=== PATIENT | male | born 1980 | race Caucasian/White ===

== ENCOUNTER 2017-03-10 15:15 | Emergency (ER) | payer OTHER, BC ==
[2017-03-10] MEDS: NAPROXEN 250 MG TAB PO (18:44)
== END 2017-03-10 19:45 | disposition home or self-care (01) ==
LOC: M ED 15:15
DX: S49.92XA Unspecified injury of left shoulder and upper arm, initial encounter (principal); X50.0XXA Overexertion from strenuous movement or load, initial encounter; Y92.89 Other specified places as the place of occurrence of the external cause; Y99.0 Civilian activity done for income or pay
CPT/HCPCS: 73030

== ENCOUNTER → 2018-02-01 | Outpatient (REF) | payer BC ==
[~2018-02-01] MED LIST: NAPR-49 PO; ULTR50TA8 PO
== END ==
LOC: M LAB REF 17:07
PROVIDERS: ATTEND Physician Assistant
DX: J02.9 Acute pharyngitis, unspecified (principal)

== ENCOUNTER → 2018-06-12 | Outpatient (CLI) | payer BC ==
[~2018-06-12] MED LIST changes: -NAPR-49 PO; +NAPR-837 PO
[2018-06-12 16:57] LABS: BASO % 0.9 % (0.0-1.0); EOS # 0.1 10^3/uL (0.0-0.50); LYMPH # 1.2 10^3/uL (1.5-4.5); LYMPH % 26.9 % (24.0-44.0); MEAN CORPUSCULAR HEMOGLOBIN 31.6 pg (27.0-33.0); MEAN CORPUSCULAR HGB CONC 33.3 g/dl (32.0-36.5); MEAN CORPUSCULAR VOLUME 94.8 fl (80.0-96.0); MONO # 0.5 10^3/uL (0.0-0.8); MONO % 11.4 % (0.0-5.0); NEUTROPHILS # 2.6 10^3/uL (1.8-7.7); NEUTROPHILS % 58.6 % (36.0-66.0); PLATELET COUNT, AUTOMATED 228 10^3/uL (150-450); RED BLOOD COUNT 4.43 10^6/uL (4.30-6.10); WHITE BLOOD COUNT 4.5 10^3/uL (4.0-10.0)
[2018-06-12 17:08] LABS: ALBUMIN 4.1 GM/DL (3.2-5.2); ALT/SGPT 24 U/L (12-78); BLOOD UREA NITROGEN 13 MG/DL (7-18); CARBON DIOXIDE LEVEL 28 MEQ/L (21-32); CHLORIDE LEVEL 107 MEQ/L (98-107); CHOLESTEROL LEVEL 188 MG/DL (<200); CHOLESTEROL RISK RATIO 2.441 (<5); CREATININE FOR GFR 1.15 MG/DL (0.70-1.30); FREE T4 0.97 NG/DL (0.76-1.46); GLOMERULAR FILTRATION RATE > 60.0 (>60); GLUCOSE, FASTING 95 MG/DL (70-100); HDL CHOLESTEROL 77 MG/DL (>40); LDL CHOLESTEROL 95 MG/DL (<100); NON-HDL-C 111 MG/DL; POTASSIUM SERUM 4.3 MEQ/L (3.5-5.1); SODIUM LEVEL 141 MEQ/L (136-145); TOTAL PROTEIN 7.2 GM/DL (6.4-8.2); TRIGLYCERIDES LEVEL 79 MG/DL (<150)
[2018-06-12 17:20] LABS: HEMOGLOBIN A1c 5.8 %
== END ==
LOC: M WUC 11:51
PROVIDERS: ATTEND Physician Assistant
DX: Z13.29 Encounter for screening for other suspected endocrine disorder (principal)

== ENCOUNTER 2018-12-04 05:57 | Day surgery (SDC) | payer BC, OTHER ==
[~2018-12-04] VITALS: Ht 182.9 cm; Wt 97.1 kg
[2018-12-04] MEDS ORDERED: ROPIvacaine 0.5% 30 ML INJECTION (J2795 PER 1MG) ONE (05:58)
[2018-12-04] MEDS ORDERED: LIDOCAINE 1% MDV 20ML VIAL ONE (05:58)
[2018-12-04] MEDS ORDERED: EPINEPHrine INJ 1 MG/ML 1ML AMP ONE (05:58)
[2018-12-04] MEDS ORDERED: fentaNYL 100 MCG/2 ML INJECTION (J3010) As Ordered ONE ×2 (06:46→07:05)
[2018-12-04] MEDS ORDERED: MIDAZOLAM INJ 2 MG/2 ML VIAL (J2250) As Ordered ONE ×2 (06:46→07:05)
[2018-12-04] MEDS ORDERED: LIDOCAINE 1% MDV 20ML VIAL As Ordered ONE (06:58)
[2018-12-04] MEDS ORDERED: EPINEPHrine INJ 1 MG/ML 1ML AMP As Ordered ONE (06:58)
[2018-12-04] MEDS ORDERED: ceFAZolin SOD 2 GM in IV 1 EA IV ONE (07:00)
[2018-12-04] MEDS ORDERED: LR 1,000 ML IV ONE (07:00)
[2018-12-04] MEDS ORDERED: PROPOFOL 200 MG/20 ML VIAL As Ordered ONE (07:04)
[2018-12-04] MEDS ORDERED: ROCURONIUM BROMIDE 50 MG/5 ML VIAL As Ordered ONE ×2 (07:04→09:07)
[2018-12-04] MEDS ORDERED: ONDANSETRON 4MG/2ML VIAL (J2405) As Ordered ONE (07:05)
[2018-12-04] MEDS ORDERED: SUGAMMADEX SODIUM 500 MG/5 ML VIAL (BRIDION) As Ordered ONE (07:05)
[2018-12-04] MEDS ORDERED: LIDOCAINE 2% INJ 100 MG/5 ML SDV (FOR ANES.) As Ordered ONE (07:05)
[2018-12-04] MEDS ORDERED: dexameTHASONE 4 MG/ML 1ML VIAL (J1100) As Ordered ONE ×2 (07:05→07:06)
[2018-12-04] MEDS ORDERED: KETOROLAC 60 MG/2 ML VIAL (J1885) As Ordered ONE (07:06)
[2018-12-04] MEDS ORDERED: ACETAMINOPHEN 1000MG 100ML IV BTL (OFIRMEV) (J0131 PER 10MG) As Ordered ONE (07:06)
[2018-12-04] MEDS: MIDAZOLAM INJ 2 MG/2 ML VIAL (J2250) IV PRN ×2 (08:02→08:05)
[2018-12-04] MEDS ORDERED: fentaNYL 100 MCG/2 ML INJECTION (J3010) IV PRN ×2 (09:00→11:00)
[2018-12-04] MEDS ORDERED: PERCOCET 5MG/325MG TAB PO PRN (11:00)
[2018-12-04] MEDS ORDERED: ONDANSETRON 4MG/2ML VIAL (J2405) IV PRN (11:00)
[2018-12-04] MEDS ORDERED: METOCLOPRAMIDE INJ 10MG/2ML VIAL (J2765) IV PRN (11:00)
[2018-12-04] MEDS ORDERED: LR 1,000 ML IV SCH ×2 (11:00→12:00)
[2018-12-04 11:35] VITALS: BP 142/83
--- NOTE | 2018-12-04 18:30 | RO ---
DATE OF PROCEDURE: 12/04/2018 PREOPERATIVE DIAGNOSES: 1. Left shoulder anterior instability. 2. Left shoulder impingement. 3. Left shoulder acromioclavicular joint contusion. POSTOPERATIVE DIAGNOSES: 1. Left shoulder anterior instability. 2. Left shoulder impingement. 3. Left shoulder acromioclavicular joint contusion. PROCEDURE: 1. Left shoulder arthroscopic anterior labral repair. 2. Superior left shoulder arthroscopic superior labral debridement three. 3. Left shoulder arthroscopic subacromial decompression including acromioplasty. 4. Left shoulder arthroscopic distal clavicle excision. SURGEON: Dr. Royce Campos LEGAL SERVICE SPECIALIST: MARILYNN Leach ANESTHESIA: General, preoperative nerve block. IV FLUIDS: Lactated Ringer's. ESTIMATED BLOOD LOSS: 5 mL. IMPLANTS: Arthrex 3 mm BioComposite SutureTak times one and Arthrex 2.9 mm BioComposite PushLock anchor times two with labral tape. CLOSURE: Nylon. DESCRIPTION OF PROCEDURE: The patient was identified in preoperative holding area, the left shoulder marked by myself. He had an interscalene nerve block by anesthesia and then was brought to the operating room, placed supine on a well-padded operating room (OR) table with a beanbag. General anesthesia was induced. He received appropriate IV antibiotics within 1 hour of incision. Examination under anesthesia revealed 180 degrees of forward flexion, 90 of external rotation, a grade 2+ anterior load and shift, grade 1 posterior load and shift. He was then placed into the right side down lateral decubitus position with an axillary roll and all bony prominences were well padded. Bilateral Venodyne boots for deep vein thrombosis (DVT) prophylaxis. The left arm was placed into the Arthrex STaR Sleeve lateral decubitus traction cabezas with 10 pounds of traction. The left shoulder was then prepped and draped in a normal sterile fashion with ChloraPrep. Prior to incision, time-out was performed per hospital protocol. Clementina Fischer was present for the entire procedure and participated in all essential portions of the procedure. This included patient positioning, draping, holding the arthroscope, providing axial traction and posterior distraction to assist during the labral repair, which was essential for this muscular individual. She also assisted with retrieving sutures arthroscopically, passing sutures through anchors, wound closure, applying the dressing and sling. A standard posterior viewing portal was made with 11-blade, 30-degree arthroscope introduced into the joint. A diagnostic arthroscopy was carried out revealing a small Hill-Sachs in the posterior humeral head adjacent to the infraspinatus attachment to the greater tuberosity. 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 There was no tearing of the posterior rotator cuff and no tearing of the supraspinatus. Subscapularis appeared intact with no lift off. The superior labrum appeared to have a leading edge tear, but there was no pathology of the long head of the biceps. There was a Baker complex with deficient anterior superior labrum and a thickened middle glenohumeral ligament draped over the subscapularis. There was free edge tearing of the anterior labrum at the equator and then there was a dramatically positive drive-through sign and then essentially no anterior inferior labrum; it had all torn and scarred in medially along the glenoid neck. An anterior working portal was established just above the subscapularis through the rotator interval to give the appropriate angle for drilling low on the glenoid. I probed the long head of the biceps and brought it into the joint, and there ws no tearing. Lifted the superior labrum off the glenoid, and there was intact articular cartilage extending over the top of the glenoid, making this more consistent with a sublabral foramen. The shaver was therefore used to perform a debridement of the superior labrum, but no indication for tenotomy, tenodesis, or SLAP repair. The supraspinatus was probed. No areas of tearing were encountered. Again, there was a dramatically positive drive-through sign. This was indicated for an anterior labral repair. An accessory anterior portal was created just anterior to the biceps, also through the rotator interval. Hooked radiofrequency cautery was used to develop the plane between articular cartilage and the anterior labrum. Labral elevators were then used to subperiosteally elevate labrum and capsule off the anterior glenoid neck. Once the capsule and labrum was fully mobilized, shaver was used on the bur setting to create a bleeding surface along the glenoid. Ring curette was also used to create some bleeding and to remove a millimeter of articular cartilage that was softened. I then drilled and placed the 3 mm Arthrex BioComposite SutureTak in the anterior inferior glenoid. The FiberWire sutures were then passed with a 25 degree tight left suture lasso in a horizontal mattress fashion making sure to grab the anterior band of the inferior glenohumeral ligament. Arthroscopic knots were then tied using alternating half hitches as my production administrative assistant applied posterior vector to the proximal humerus. Sutures were cut with the appropriate corner block cutter. The humeral head was already better located on the glenoid, and the drive-through sign was largely eliminated. I then used the suture lasso to shuttle labral tape through anterior capsule and labrum, and then that was loaded through a 2.9 mm PushLock. The appropriate drill used to create a socket in the anterior glenoid, and then the suture was tensioned, the anchor was inserted by hand and then malleted per routine with excellent fixation. Excess suture was cut with the arthroscopic corner block cutter. Those same steps were repeated for a second PushLock for a total of three anchors. The final anchor was at the equator. The superior labrum was gently debrided again with the shaver and again no tenotomy or tenodesis indicated. The shoulder was irrigated and drained. The arthroscope was placed in the subacromial space where there was extensive bursitis. A lateral working portal was developed and bursectomy was performed with shaver and cautery. A moderate size subacromial spur was encountered, and this was removed with a bur, turning this into a type 1 morphology. An accessory anterior portal to get a better angle at the acromioclavicular (AC) joint was created and then cautery used to clear out extensive scar tissue which had formed within the AC joint. Once that was cleared out, there was only mild narrowing, so the bur was used to remove 2-3 mm in the distal clavicle ensuring that all posterior-superior bone was removed to eliminate residual impingement. The shoulder was then irrigated and drained. Portals were closed with nylon suture. Bulky sterile dressing was applied, and then the patient was carefully placed into his ARC 2 sling. COMPLICATIONS: None. All counts correct times two. At the time of this dictation, the patient is about to be extubated and transferred to the post-anesthesia care unit (PACU).
== END 2018-12-04 12:10 | disposition home or self-care (01) ==
LOC: M SDC 05:57
PROVIDERS: ATTEND Orthopaedic Surgery
DX: M25.312 Other instability, left shoulder (principal); M75.42 Impingement syndrome of left shoulder; M94.212 Chondromalacia, left shoulder; M75.52 Bursitis of left shoulder; M25.712 Osteophyte, left shoulder; S40.012A Contusion of left shoulder, initial encounter; K21.9 Gastro-esophageal reflux disease without esophagitis; X58.XXXA Exposure to other specified factors, initial encounter; Y93.9 Activity, unspecified; Y92.9 Unspecified place or not applicable; Y99.9 Unspecified external cause status; Z87.81 Personal history of (healed) traumatic fracture
CPT/HCPCS: 29807; 29824; 29826; 64415; C1713; C1776; J0131; J0690; J1100; J1885; J2250; J2405; J2795; J3010

== ENCOUNTER → 2020-02-29 | Outpatient (REF) | payer BC ==
[2020-02-29 14:25] LABS: SEMEN APPEARANCE OPAQUE (OPAQUE); SEMEN VISCOSITY VISCOUS (LIQUID); SEMEN VOLUME 1.1 ml (2.0-5.0); SPERM CONCENTRATION 199.9 M/ml (>=15.0); WBC CONCENTRATION <=1 M/ml (<=1 M/ml)
== END ==
LOC: M LAB REF 14:23
PROVIDERS: ATTEND Obstetrics & Gynecology
DX: Z31.41 Encounter for fertility testing (principal)

== ENCOUNTER → 2020-12-08 | Outpatient (CLI) | payer BC ==
--- NOTE | 2020-12-08 15:10 | REP ---
INDICATION: OTHER SPONDYLOSIS WITH RADICULOPATHY, CERVICAL REGION. NO HISTORY OF TRAUMA WHATSOEVER COMPARISON: None. TECHNIQUE: Eight views FINDINGS: Vertebral body height and alignment is within normal limits for the disc spaces are symmetric and well maintained throughout. The facet joints are well aligned bilaterally. The intervertebral foramina are ample bilaterally in the neural canal is not encroached upon. Flexion and extension is not particularly limited radiographically. IMPRESSION: Unremarkable cervical spine series. <Electronically signed by Dong Miramontes > 12/08/20 [id number]
== END ==
LOC: M RAD 13:35
PROVIDERS: ATTEND Physician Assistant
DX: M47.22 Other spondylosis with radiculopathy, cervical region (principal)

== ENCOUNTER → 2021-01-30 | Outpatient (CLI) | payer BC | LOC: M LABSMTC 12:48 | PROVIDERS: ATTEND Pediatrics | DX: Z11.52 Encounter for screening for COVID-19 (principal); Z20.822 Contact with and (suspected) exposure to COVID-19 | CPT/HCPCS: C9803; U0003 ==

== ENCOUNTER → 2022-07-22 | Outpatient (CLI) | payer OTHER ==
[2022-07-22 14:22] LABS: HEMOGLOBIN 14.3 g/dl (13.5-17.5); MEAN CORPUSCULAR HEMOGLOBIN 31.5 pg (27.0-33.0); MEAN CORPUSCULAR VOLUME 92.5 fl (80.0-96.0); PLATELET COUNT, AUTOMATED 245 10^3/uL (150-450); RED BLOOD COUNT 4.54 10^6/uL (4.30-6.10); WHITE BLOOD COUNT 4.7 10^3/uL (4.0-10.0)
[2022-07-22 15:00] LABS: ALBUMIN 4.1 G/DL (3.2-5.2); ALKALINE PHOSPHATASE 73 U/L (46-116); ALT/SGPT 24 U/L (7.0-40); AST/SGOT 23 U/L (<34); BILIRUBIN,TOTAL 0.5 MG/DL (0.3-1.2); BLOOD UREA NITROGEN 18 MG/DL (9-23); CALCIUM LEVEL 8.9 MG/DL (8.5-10.1); CARBON DIOXIDE LEVEL 28 MMOL/L (20-31); CHLORIDE LEVEL 104 MMOL/L (98-107); CHOLESTEROL LEVEL 145 MG/DL (<200); CHOLESTEROL RISK RATIO 3.25 (<5); CREATININE FOR GFR 1.05 MG/DL (0.70-1.30); GLOMERULAR FILTRATION RATE > 60.0 (>60); GLUCOSE, FASTING 79 MG/DL (60-100); HDL CHOLESTEROL 44.6 MG/DL (>40); LDL CHOLESTEROL 86.2 MG/DL (<100); NON-HDL-C 100.4 MG/DL; POTASSIUM SERUM 4.3 MMOL/L (3.5-5.1); SODIUM LEVEL 140 MMOL/L (136-145); TOTAL PROTEIN 7.3 G/DL (5.7-8.2); TRIGLYCERIDES LEVEL 71 MG/DL (<150)
[2022-07-22 15:02] LABS: FREE T4 1.19 NG/DL (0.89-1.76); THYROID STIMULATING HORMONE 1.265 uIU/ML (0.55-4.78); TOTAL 25(OH) VITAMIN D 29.5 NG/ML (20.0-100.0)
[2022-07-22 15:32] LABS: HEMOGLOBIN A1c 5.2 % (4.0-6.0)
[2022-07-22 15:45] LABS: ATYPICAL LYMPH 4 % (0-5); BASOPHILS 2 % (0-1); EOSINOPHILS 1 % (0-3); LYMPHOCYTES 28 % (16-44); MONOCYTES 13 % (0-5); NEUTROPHILS 50 % (28-66); PLATELET ESTIMATE NORMAL (NORMAL)
== END ==
LOC: M PLALAB 12:29
PROVIDERS: ATTEND Physician Assistant
DX: Z13.220 Encounter for screening for lipoid disorders (principal); Z13.29 Encounter for screening for other suspected endocrine disorder

== ENCOUNTER → 2023-03-31 | Outpatient (CLI) | payer OTHER | LOC: M RAD 06:37 | PROVIDERS: ATTEND Physician Assistant | DX: M50.123 Cervical disc disorder at C6-C7 level with radiculopathy (principal); M51.24 Other intervertebral disc displacement, thoracic region; M47.14 Other spondylosis with myelopathy, thoracic region; M47.812 Spondylosis without myelopathy or radiculopathy, cervical region; M99.71 Connective tissue and disc stenosis of intervertebral foramina of cervical region ==

== ENCOUNTER → 2023-05-11 | Outpatient (REF) | payer OTHER | LOC: M LABSMT 10:37 | PROVIDERS: ATTEND Urology | DX: Z30.2 Encounter for sterilization (principal) ==

== ENCOUNTER → 2023-11-25 | Outpatient (REF) | payer OTHER ==
[2023-11-25 14:33] LABS: SEMEN APPEARANCE OPAQUE (OPAQUE); SEMEN VISCOSITY LIQUID (LIQUID); SEMEN VOLUME 1.2 ml (2.0-5.0); WBC CONCENTRATION <=1 M/ml (<=1 M/ml)
== END ==
LOC: M SMT 14:24
PROVIDERS: ATTEND Urology
DX: Z30.2 Encounter for sterilization (principal)

== ENCOUNTER 2024-09-12 08:20 | Day surgery (SDC) | payer OTHER ==
[~2024-09-12] VITALS: Ht 185.4 cm; Wt 102.3 kg
[2024-09-12] MEDS ORDERED: LIDOCAINE 2% 100 MG/5 ML SDV (FOR ANES.) As Ordered ONE (09:22)
[2024-09-12 09:46] VITALS: BP 118/64; O2SAT 100
== END 2024-09-12 09:54 | disposition home or self-care (01) ==
LOC: M OPP 08:20
PROVIDERS: ATTEND Surgery
DX: Z12.11 Encounter for screening for malignant neoplasm of colon (principal); K64.0 First degree hemorrhoids; Z87.891 Personal history of nicotine dependence